=== PATIENT | male | born 1995 | race African-American/Black ===

== ENCOUNTER 2023-04-01 14:12 | Emergency (ER) | payer OTHER ==
[~2023-04-01] VITALS: Ht 167.6 cm; Wt 72.6 kg
[2023-04-01 14:25] VITALS: BP 146/109
[2023-04-01 15:58] VITALS: BP 146/109
== END 2023-04-01 15:58 | disposition left against medical advice (07) ==
LOC: MED 14:12
DX: M79.10 Myalgia, unspecified site (principal); Z53.21 Procedure and treatment not carried out due to patient leaving prior to being seen by health care provider
CPT/HCPCS: 99281